=== PATIENT | female | born 1990 | race Caucasian/White ===

== ENCOUNTER 2021-09-05 19:30 | Emergency (ER) | payer OTHER ==
[~2021-09-05 19:30] MED LIST: CEFUROXIME500 MG PO
== END 2021-09-05 21:41 | disposition home or self-care (01) ==
LOC: ER1 19:30
DX: J06.9 Acute upper respiratory infection, unspecified (principal); Z20.822 Contact with and (suspected) exposure to COVID-19; I50.9 Heart failure, unspecified; I48.91 Unspecified atrial fibrillation; D64.9 Anemia, unspecified; F17.290 Nicotine dependence, other tobacco product, uncomplicated; Z79.82 Long term (current) use of aspirin; Z88.2 Allergy status to sulfonamides; Z88.1 Allergy status to other antibiotic agents
CPT/HCPCS: 0240U; 87081; 87880; 99283